=== PATIENT | male | born 1950 | race Caucasian/White ===

== ENCOUNTER 2017-04-04 09:42 | Outpatient (CLI) | payer BC ==
[~2017-04-04 09:42] MED LIST: AMLODIPINE BESYL5 MG ORAL; ASPIR 8181 MG ORAL; CARISOPRODOL250 MG ORAL; CYCLOBENZAPRINE10 MG ORAL; DIOVAN40 MG ORAL; HYDROCHLOROTHIA25 MG ORAL; IBUPROFEN600 MG ORAL; NORCO 5-325 TA1 EACH ORAL; PRILOSEC10 MG ORAL; TRICOR145 MG ORAL
[2017-04-04 10:22] LABS: GLOMERULAR FILTRATION RATE > 60 mL/min (>60)
--- NOTE | 2017-04-05 11:08 | Diagnostic Imaging Report ---
Indication: Elevated prolactin. Sella mass Technique: MRI of the sella was performed at 1.5 Aline magnet. Pulse sequences obtained include pre-gadolinium sagittal and coronal T1 fast spin-echo, sagittal and coronal T2 fast spin-echo with fat saturation, and post gadolinium sagittal and coronal T1 fast spin-echo. MRI of the brain also performed utilizing sagittal and axial T1 fast spin-echo, post gadolinium axial and coronal T1 fast spin-echo, axial T2 FLAIR, diffusion, ADC map, T2 fast spin-echo with fat saturation, T2* gradient echo. Comparison: None Findings: MRI of the sella: There is a large enhancing mass within the sella extending into the suprasellar cistern having a blackburn-shaped configuration measuring approximately 2.0 x 2.2 x 2.9 cm in AP, transverse, craniocaudal dimensions respectively. The lateral portions of the mass compresses upon the cavernous sinus bilaterally, which remain patent. Flow voids within the internal carotid arteries are normal bilaterally. The upper portion of the mass extends into the suprasellar cistern with moderate compression of the optic chiasm noted. The anterior recess of the third ventricle is mildly compressed as well. There is associated enlargement of the sella. Findings are consistent with a pituitary adenoma. MRI of the brain: There is a triangular focus of cystic encephalomalacia measuring about 1.5 cm in the left aspect of the cerebellum consistent with a small infarct. There is no diffusion restriction indicative of acute CVA. There is mild atrophy the brain which appears age appropriate. There is no hydrocephalus. Basal cisterns are normal other than the suprasellar cistern. No susceptibility demonstrated. No abnormal enhancement otherwise demonstrated. Impression: 2 x 2.2 x 2.9 cm mass involving the sella with suprasellar extension consistent with a pituitary adenoma. Moderate compression of the optic chiasm and some compression of the medial aspects of the cavernous sinus noted bilaterally. Mild generalized atrophy the brain. 1.5 cm old lacunar infarct left cerebellum.
== END 2017-04-04 11:42 | disposition home or self-care (01) ==
LOC: MRI 09:42
DX: G31.9 Degenerative disease of nervous system, unspecified (principal); G93.89 Other specified disorders of brain
CPT/HCPCS: 36415; 70551; 70553; 82565; 84520; A9585

== ENCOUNTER 2019-08-08 11:12 | Emergency (ER) | payer BC, MEDICARE ==
[~2019-08-08] VITALS: Ht 175.3 cm; Wt 100.7 kg
[2019-08-08 11:26] VITALS: BP 165/82
--- NOTE | 2019-08-08 11:27 | NUR ---
ED Nurse Note: pt walked in to ER with from home for neck, Rt shoulder radiates to Rt elbow. pt aao x 4 and ambulatory. skin clean and intact. calm and cooperative. no cardiac or pulmonary distress noted at this time. pt denied injury but pain started on 07/27/19.
--- NOTE | 2019-08-08 11:38 | NUR ---
ED Nurse Note: ERMD at bedside.
[2019-08-08] MEDS ORDERED: Methocarbamol 750mg tab ORAL ONE (11:45)
[2019-08-08] MEDS ORDERED: Acetaminophen 500mg (ES) tab ORAL ONE (11:45)
--- NOTE | 2019-08-08 11:45 | NUR ---
ED Nurse Note: pt taken to CT in WC in stable condition.
--- NOTE | 2019-08-08 11:54 | NUR ---
ED Nurse Note: pt came back from CT scan in stable condition.
--- NOTE | 2019-08-08 12:05 | Diagnostic Imaging Report ---
EXAM: CT Cervical Spine Without Intravenous Contrast CLINICAL HISTORY: PAIN TECHNIQUE: Axial computed tomography images of the cervical spine without intravenous contrast. Sagittal and coronal reformatted images were created and reviewed. CTDI is 11.10 mGy and DLP is 298.80 mGy-cm. One or more of the following dose reduction techniques were used: automated exposure control, adjustment of the mA and/or kV according to patient size, use of iterative reconstruction technique. COMPARISON: No relevant prior studies available. FINDINGS: Vertebrae: Unremarkable. No visible displaced fracture. Cervical body heights are preserved. The atlantodens interval appears unremarkable. Discs/spinal canal/neural foramina: Degenerative changes throughout the mid and lower cervical spine, with disc space loss, facet and uncovertebral arthrosis, and endplate osteophytes. Associated moderate bilateral osseous neural foraminal stenosis at C5-6 and C6-7. Soft tissues: Unremarkable. IMPRESSION: Degenerative changes throughout the mid and lower cervical spine. Associated moderate bilateral osseous neural foraminal stenosis at C5-6 and C6-7.
--- NOTE | 2019-08-08 12:42 | NUR ---
ED Nurse Note: ERMD at bedside.
[2019-08-08] MEDS ORDERED: TYLENOL EXTRA500 MG ORAL (12:49)
[2019-08-08] MEDS ORDERED: ROBAXIN-750750 MG PO (12:49)
[2019-08-08] MEDS ORDERED: LIDODERM700 M1 TOPIC (12:49)
[2019-08-08 12:58] VITALS: BP 156/84
--- NOTE | 2019-08-08 12:58 | NUR ---
ED Nurse Note: Pt cleared by health care Provider for discharge. Patient verbalized improved pain level to 2/10. DC instructions/prescription was given and explained to pt and verbalized understanding of teachings. All medical deviecs such as ID band removed. Pt is AAO x4, ambulatory and left with all personal belongings.
--- NOTE | 2019-08-09 14:12 | Emergency Room Report ---
History of Present Illness General Chief Complaint: Pain Source: Patient, Family Member Present Illness HPI 69-year-old male presents ED for evaluation of neck pain. States has had this pain since 07/27. Denies any fall or injury. 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 Notes pain which is sharp, 8 out of 10, radiating down the right shoulder to the right arm. Denies chest pain or shortness of breath. Denies slurred speech or facial droop. Denies arm or leg weakness. Denies fevers or chills. Denies headache. No other aggravating relieving factors. Denies any other associated symptoms Allergies: Coded Allergies: No Known Allergies (Verified Allergy, Unknown, 01/01/11) Patient History Past Medical History: HTN, CVA/TIA Past Surgical History: none Pertinent Family History: none Social History: Denies: smoking, alcohol use, drug use Immunizations: UTD Reviewed Nursing Documentation: PMH: Agreed; PSxH: Agreed Nursing Documentation-PMH Past Medical History: No History, Except For Hx Cardiac Problems: Yes Hx Hypertension: Yes Hx Cancer: No Hx Gastrointestinal Problems: Yes Hx Neurological Problems: Yes Hx Cerebrovascular Accident: Yes - 2001 Review of Systems All Other Systems: negative except mentioned in HPI Physical Exam Vital Signs Date Time Temp Pulse Resp B/P (MAP) Pulse Ox O2 Delivery O2 Flow Rate FiO2 08/08/19 11:18 98.6 65 16 165/82 (109) 97 Room Air Sp02 EP Interpretation: reviewed, normal General Appearance: no apparent distress, alert, GCS 15, non-toxic Head: normocephalic Eyes: bilateral eye normal inspection, bilateral eye PERRL ENT: hearing grossly normal, normal pharynx, no angioedema, normal voice Neck: full range of motion, supple/symm/no masses, tender lateral, tender midline Respiratory: chest non-tender, lungs clear, normal breath sounds, speaking full sentences Cardiovascular #1: regular rate, rhythm, no edema Gastrointestinal: normal inspection Rectal: deferred Genitourinary: no CVA tenderness Musculoskeletal: back normal, normal range of motion, gait/station normal, non- tender Neurologic: alert, motor strength/tone normal, 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 After initial history and physical exam reveals an elderly male in no acute distress. Some midline neck tenderness. There is also pain noted to the shoulder and radiating down the right arm. No sensory deficit. 5 out of 5 strength in extremity. No slurred speech or facial droop. Cranial nerves II through XII intact. I ordered CT C-spine. I ordered pain meds. C-spine shows no fracture. Significant DJD with some stenosis. I discussed findings with patient. Consistent with radiculopathy. Reassurance given. Patient states pain is improved. Will discharge home with medications. I spoke to PMD Dr. Palacios and he is aware. Patient would benefit from physical therapy. Safe for discharge for close outpatient follow-up Diagnosis - neck strain Stable and discharged to home with prescription for tylenol, robaxin, lidoderm. Followup with PMD. Return to ED if symptoms recur or worsen CT/MRI/US Diagnostic Results CT/MRI/US Diagnostic Results : Imaging Test Ordered: CT C spine Impression FINDINGS: Vertebrae: Unremarkable. No visible displaced fracture. Cervical body heights are preserved. The atlantodens interval appears unremarkable. Discs/spinal canal/neural foramina: Degenerative changes throughout the mid and lower cervical spine, with disc space loss, facet and uncovertebral arthrosis, and endplate osteophytes. Associated moderate bilateral osseous neural foraminal stenosis at C5-6 and C6-7. Soft tissues: Unremarkable. IMPRESSION: Degenerative changes throughout the mid and lower cervical spine. Associated moderate bilateral osseous neural foraminal stenosis at C5-6 and C6-7. Last Vital Signs Date Time Temp Pulse Resp B/P (MAP) Pulse Ox O2 Delivery O2 Flow Rate FiO2 08/08/19 12:58 98.2 74 16 156/84 97 Room Air Status: improved Disposition: HOME, SELF-CARE Condition: Stable Scripts Lidocaine Patch* (Lidoderm Patch*) 1 Each Adh..patch 1 PATCH TOPIC DAILY, #7 PATCH 0 Refills Patch(es) may remain in place for up to 12 hours in any 24-hour period. Prov: Andrés Leon MD 08/08/19 Methocarbamol* (ROBAXIN-750*) 750 Mg Tablet 750 MG PO TID, #21 TAB 0 Refills Prov: Andrés Leon MD 08/08/19 Acetaminophen* (TYLENOL EXTRA STRENGTH*) 500 Mg Tablet 500 MG ORAL Q8H PRN for Prn Headache/Temp > 101, #30 TAB 0 Refills Prov: Andrés Leon MD 08/08/19 Patient Instructions: Cervical Radiculopathy, [id number] Andrés Leon MD Aug 09, 2019 14:12
== END 2019-08-08 12:58 | disposition home or self-care (01) ==
LOC: EMR 12:00
DX: S13.9XXA Sprain of joints and ligaments of unspecified parts of neck, initial encounter (principal); M54.2 Cervicalgia; I10 Essential (primary) hypertension; Z86.73 Personal history of transient ischemic attack (TIA), and cerebral infarction without residual deficits; M25.511 Pain in right shoulder; X58.XXXA Exposure to other specified factors, initial encounter; Y92.9 Unspecified place or not applicable
CPT/HCPCS: 72125; 99284